=== PATIENT | male | born 1985 | race Caucasian/White ===

== ENCOUNTER 2021-07-28 20:11 | Emergency (ER) | payer MEDICAID ==
[~2021-07-28] VITALS: Ht 172.7 cm; Wt 57.0 kg
[2021-07-29 06:55] VITALS: BP 113/77
== END 2021-07-29 08:30 ==
LOC: ER 20:11
DX: S09.90XA Unspecified injury of head, initial encounter (principal); Z88.2 Allergy status to sulfonamides; W18.30XA Fall on same level, unspecified, initial encounter; Y93.89 Activity, other specified; Y92.89 Other specified places as the place of occurrence of the external cause; Y99.8 Other external cause status
CPT/HCPCS: 99285

== ENCOUNTER 2021-08-04 10:59 | Inpatient (IN) | payer MEDICAID, OTHER ==
[~2021-08-04] VITALS: Ht 170.2 cm; Wt 63.5 kg
[2021-08-04] MEDS ORDERED: TETANUS, DIPHTHERIA, PERTUSSIS VAC/PF 0.5ML (>10YR OLD) IM ONE (11:30)
[2021-08-04] MEDS ORDERED: LIDOCAINE HCL/EPINEPHRINE 1%-EPI 1:100,000 50 ML VIAL INFIL ONE (12:00)
[2021-08-04] MEDS ORDERED: LIDOCAINE HCL/EPINEPHRINE 1%-EPI 1:100,000 10 ML VIAL INFIL NR (12:00)
[2021-08-04 12:03] LABS: BASOPHILS % 0.6 % (0.0-2.0); EOSINOPHILS % 1.6 % (0.0-5.0); HEMATOCRIT. 32.2 % (42.0-52.0); HEMOGLOBIN. 10.4 g/dL (14.0-18.0); LYMPHOCYTES % 14.7 % (20.0-50.0); MEAN CORPUSCULAR HEMOGLOBIN 25.2 pg (28.0-32.0); MEAN CORPUSCULAR VOLUME 77.6 fL (80.0-94.0); MEAN PLATELET VOLUME 6.4 fl (7.4-10.4); MONOCYTES % 7.5 % (2.0-8.0); NEUTROPHILS % 75.6 % (40.0-76.0); PLATELET 205 x1000/uL (130-400); RED BLOOD CELL COUNT 4.14 mill/uL (4.7-6.1); RED CELL DISTRIBUTION WIDTH 20.3 % (11.6-14.6)
[2021-08-04 12:10] LABS: CHLORIDE 106 mEq/L (98-107)
[2021-08-04 12:13] LABS: ETHANOL BLOOD < 10 mg/dL
[2021-08-04 12:17] LABS: CREATINE KINASE 66 IU/L (39-308)
[2021-08-04] MEDS ORDERED: LORAZEPAM 2MG/ML CPJ IV ONE (12:30)
[2021-08-04 15:31] LABS: CLARITY URINE CLEAR (CLEAR); COLOR URINE YELLOW (YELLOW); KETONES URINE NEGATIVE (NEGATIVE); LEUKOCYTE ESTERASE URINE NEGATIVE (NEGATIVE); NITRITE URINE NEGATIVE (NEGATIVE); OCCULT BLOOD URINE NEGATIVE (NEGATIVE); PH URINE 5.5 (4.5-8.0); PROTEIN URINE NEGATIVE (NEGATIVE)
[2021-08-04 16:05] LABS: *AMPHETAMINES SCREEN URINE NEGATIVE (NEGATIVE); *BARBITURATES SCREEN URINE NEGATIVE (NEGATIVE); *BENZODIAZEPINES SCREEN URINE NEGATIVE (NEGATIVE); *COCAINE SCREEN URINE NEGATIVE (NEGATIVE)
[2021-08-04 16:06] LABS: CANNABINOID URINE SCREEN NEGATIVE (NEGATIVE); METHADONE URINE SCREEN NEGATIVE (NEGATIVE); OPIATES URINE SCREEN NEGATIVE (NEGATIVE); PHENCYCLIDINE URINE SCREEN NEGATIVE (NEGATIVE)
[2021-08-04] MEDS ORDERED: ACETAMINOPHEN 325MG TABLET PO PRN (19:15)
[2021-08-04] MEDS ORDERED: LORAZEPAM 2MG/ML CPJ IV PRN (19:15)
[2021-08-04] MEDS ORDERED: ONDANSETRON HCL 4MG/2ML INJ IV PRN (19:15)
[2021-08-04] MEDS ORDERED: CLONIDINE 0.1MG TABLET PO PRN (19:15)
[2021-08-05] MEDS ORDERED: HALOPERIDOL LACTATE 5MG/ML VIAL IM PRN (05:45)
[2021-08-05] MEDS ORDERED: NALOXONE HCL 0.4MG/ML VIAL IV PRN (14:45)
[2021-08-05] MEDS: HALOPERIDOL LACTATE 5MG/ML VIAL IM PRN (15:29)
[2021-08-05] MEDS: LORAZEPAM 2MG/ML CPJ IM PRN ×2 (17:30→23:29)
[2021-08-05 18:32] VITALS: BP 118/81
[2021-08-05 20:00] VITALS: BP 128/74
[2021-08-05] MEDS: HYDROCODONE/ACETAMINOPHEN 5/325MG TABLET PO PRN (22:52)
[2021-08-05] MEDS: RISPERIDONE 1MG TABLET PO SCH (22:52)
[2021-08-06 08:00] VITALS: BP 100/61
[2021-08-06] MEDS: RISPERIDONE 1MG TABLET PO SCH ×2 (08:47→20:16)
[2021-08-06] MEDS: LORAZEPAM 2MG/ML CPJ IM PRN ×3 (08:47→20:15)
[2021-08-06 16:00] VITALS: BP 135/71
[2021-08-06] MEDS: HALOPERIDOL LACTATE 5MG/ML VIAL IM PRN (16:10)
[2021-08-06 20:00] VITALS: BP 115/68
[2021-08-06] MEDS: DIVALPROEX SODIUM 250MG DR TABLET PO SCH (20:15)
[2021-08-07] VITALS: BP 126/78
[2021-08-07] MEDS: LORAZEPAM 2MG/ML CPJ IM PRN ×5 (00:32→20:12)
[2021-08-07] MEDS: HALOPERIDOL LACTATE 5MG/ML VIAL IM PRN ×2 (03:15→16:24)
[2021-08-07 08:00] VITALS: BP 117/74
[2021-08-07] MEDS: DIVALPROEX SODIUM 250MG DR TABLET PO SCH ×2 (09:17→20:11)
[2021-08-07] MEDS: RISPERIDONE 1MG TABLET PO SCH ×2 (09:17→20:11)
[2021-08-07 16:00] VITALS: BP 119/74
[2021-08-07] MEDS: CLONAZEPAM 0.5MG TABLET PO SCH ×2 (16:03→22:21)
[2021-08-07 20:00] VITALS: BP 97/69
[2021-08-07] MEDS: CHLORPROMAZINE HCL 25 MG TABLET PO PRN (20:11)
[2021-08-08] VITALS: BP 130/79
[2021-08-08 04:00] VITALS: BP 108/67
[2021-08-08] MEDS: CHLORPROMAZINE HCL 25 MG TABLET PO PRN ×2 (06:31→13:11)
[2021-08-08] MEDS: CLONAZEPAM 0.5MG TABLET PO SCH ×2 (06:31→14:00)
[2021-08-08] MEDS: DIVALPROEX SODIUM 250MG DR TABLET PO SCH ×2 (08:33→19:53)
[2021-08-08] MEDS: RISPERIDONE 1MG TABLET PO SCH ×2 (08:33→19:52)
[2021-08-08 16:00] VITALS: BP 123/70
[2021-08-08] MEDS ORDERED: CLONAZEPAM 1MG TABLET PO SCH (16:00)
[2021-08-08] MEDS: LORAZEPAM 2MG/ML CPJ IM PRN ×2 (16:22→16:26)
[2021-08-08] MEDS: HYDROCODONE/ACETAMINOPHEN 5/325MG TABLET PO PRN (19:53)
[2021-08-08 20:00] VITALS: BP 114/63
[2021-08-08] MEDS: CLONAZEPAM 1MG TABLET PO SCH (23:05)
[2021-08-09] VITALS: BP 124/84
[2021-08-09] MEDS: HYDROCODONE/ACETAMINOPHEN 5/325MG TABLET PO PRN (01:33)
[2021-08-09] MEDS: LORAZEPAM 2MG/ML CPJ IM PRN (02:17)
[2021-08-09] MEDS: HALOPERIDOL LACTATE 5MG/ML VIAL IM PRN (03:29)
[2021-08-09 04:00] VITALS: BP 119/70
[2021-08-09] MEDS: CLONAZEPAM 1MG TABLET PO SCH ×3 (06:08→21:29)
[2021-08-09 08:00] VITALS: BP 113/63
[2021-08-09] MEDS: CHLORPROMAZINE HCL 25 MG TABLET PO PRN (08:59)
[2021-08-09] MEDS: RISPERIDONE 1MG TABLET PO SCH ×2 (08:59→21:30)
[2021-08-09] MEDS: DIVALPROEX SODIUM 250MG DR TABLET PO SCH ×2 (09:04→21:29)
[2021-08-09 12:00] VITALS: BP 128/75
[2021-08-09 16:00] VITALS: BP 131/75
[2021-08-09 20:00] VITALS: BP 99/63
[2021-08-10] VITALS: BP 101/65
[2021-08-10 04:00] VITALS: BP 118/76
[2021-08-10] MEDS: CLONAZEPAM 1MG TABLET PO SCH ×3 (05:30→17:19)
[2021-08-10 08:00] VITALS: BP 117/74
[2021-08-10 08:09] LABS: BASOPHILS % 0.4 % (0.0-2.0); EOSINOPHILS % 2.9 % (0.0-5.0); HEMATOCRIT. 33.4 % (42.0-52.0); HEMOGLOBIN. 11.3 g/dL (14.0-18.0); LYMPHOCYTES % 23.4 % (20.0-50.0); MEAN CORPUSCULAR HEMOGLOBIN 25.4 pg (28.0-32.0); MEAN CORPUSCULAR VOLUME 75.5 fL (80.0-94.0); MEAN PLATELET VOLUME 6.9 fl (7.4-10.4); MONOCYTES % 8.4 % (2.0-8.0); NEUTROPHILS % 64.9 % (40.0-76.0); PLATELET 227 x1000/uL (130-400); RED BLOOD CELL COUNT 4.43 mill/uL (4.7-6.1); RED CELL DISTRIBUTION WIDTH 19.8 % (11.6-14.6)
[2021-08-10 08:31] LABS: CHLORIDE 105 mEq/L (98-107)
[2021-08-10] MEDS: RISPERIDONE 1MG TABLET PO SCH ×2 (09:56→20:59)
[2021-08-10] MEDS: DIVALPROEX SODIUM 250MG DR TABLET PO SCH ×2 (09:56→20:57)
[2021-08-10] MEDS: HALOPERIDOL LACTATE 5MG/ML VIAL IM PRN (10:44)
[2021-08-10 12:00] VITALS: BP 115/90
[2021-08-10 16:00] VITALS: BP 114/77
[2021-08-10 20:00] VITALS: BP 117/79
[2021-08-11] VITALS: BP 122/82
[2021-08-11 04:00] VITALS: BP 120/68
[2021-08-11 08:00] VITALS: BP 109/65
[2021-08-11] MEDS: CLONAZEPAM 1MG TABLET PO SCH ×2 (09:00→17:39)
[2021-08-11] MEDS: RISPERIDONE 1MG TABLET PO SCH ×2 (09:01→21:05)
[2021-08-11 12:00] VITALS: BP 119/67
[2021-08-11] MEDS: DIVALPROEX SODIUM 250MG DR TABLET PO SCH ×2 (13:50→21:05)
[2021-08-11] MEDS: HALOPERIDOL LACTATE 5MG/ML VIAL IM PRN (14:59)
[2021-08-11 20:00] VITALS: BP 115/79
[2021-08-12] VITALS: BP 112/82
[2021-08-12 04:00] VITALS: BP 120/84
[2021-08-12 08:00] VITALS: BP 109/77
[2021-08-12] MEDS: RISPERIDONE 1MG TABLET PO SCH ×2 (09:53→21:36)
[2021-08-12] MEDS: DIVALPROEX SODIUM 250MG DR TABLET PO SCH ×2 (09:53→21:32)
[2021-08-12 12:00] VITALS: BP 97/62
[2021-08-12 16:00] VITALS: BP 109/82
[2021-08-12] MEDS: HALOPERIDOL LACTATE 5MG/ML VIAL IM PRN (17:14)
[2021-08-12 20:00] VITALS: BP 98/55
[2021-08-13] VITALS: BP 109/78
[2021-08-13 04:00] VITALS: BP 114/74
[2021-08-13] MEDS: RISPERIDONE 1MG TABLET PO SCH ×2 (11:14→21:40)
[2021-08-13] MEDS: DIVALPROEX SODIUM 250MG DR TABLET PO SCH ×2 (11:15→21:42)
[2021-08-13 12:00] VITALS: BP 113/65
[2021-08-13 16:00] VITALS: BP 141/66
[2021-08-13] MEDS: CHLORPROMAZINE HCL 25 MG TABLET PO PRN (16:43)
[2021-08-13 20:00] VITALS: BP 117/72
[2021-08-13] MEDS: HYDROXYZINE 10 MG TABLET PO SCH ×2 (21:39→21:41)
[2021-08-14] VITALS: BP 105/58
[2021-08-14 04:00] VITALS: BP 116/68
[2021-08-14] MEDS: DIVALPROEX SODIUM 250MG DR TABLET PO SCH ×2 (08:52→22:56)
[2021-08-14] MEDS: RISPERIDONE 1MG TABLET PO SCH ×2 (09:00→23:01)
[2021-08-14] MEDS: CHLORPROMAZINE HCL 25 MG TABLET PO PRN (11:19)
[2021-08-14 12:00] VITALS: BP 133/70
[2021-08-14] MEDS: HALOPERIDOL LACTATE 5MG/ML VIAL IM PRN (14:55)
[2021-08-14 20:00] VITALS: BP 102/64
[2021-08-14] MEDS: HYDROXYZINE 10 MG TABLET PO SCH (21:00)
[2021-08-14 22:00] VITALS: BP 110/62
[2021-08-15] VITALS: BP 110/62
[2021-08-15 04:00] VITALS: BP 118/64
[2021-08-15 08:00] VITALS: BP 105/64
[2021-08-15] MEDS: RISPERIDONE 1MG TABLET PO SCH ×2 (08:38→19:57)
[2021-08-15] MEDS: DIVALPROEX SODIUM 250MG DR TABLET PO SCH ×2 (08:38→19:57)
[2021-08-15 12:00] VITALS: BP 115/71
[2021-08-15 16:00] VITALS: BP 111/68
[2021-08-15] MEDS: HYDROXYZINE 10 MG TABLET PO SCH (19:57)
[2021-08-15 20:00] VITALS: BP 115/71
[2021-08-15] MEDS: HALOPERIDOL LACTATE 5MG/ML VIAL IM PRN (22:06)
[2021-08-16] VITALS: BP 103/69
[2021-08-16 04:00] VITALS: BP 98/66
[2021-08-16 08:00] VITALS: BP 97/60
[2021-08-16] MEDS: RISPERIDONE 1MG TABLET PO SCH ×2 (08:53→21:09)
[2021-08-16] MEDS: DIVALPROEX SODIUM 250MG DR TABLET PO SCH ×2 (08:53→21:09)
[2021-08-16 12:00] VITALS: BP 117/76
[2021-08-16 16:00] VITALS: BP 107/69
[2021-08-16 20:00] VITALS: BP 113/74
[2021-08-16] MEDS: HALOPERIDOL LACTATE 5MG/ML VIAL IM PRN (21:09)
[2021-08-17] VITALS: BP 120/59
[2021-08-17] MEDS: HALOPERIDOL LACTATE 5MG/ML VIAL IM PRN ×3 (03:57→22:52)
[2021-08-17 04:00] VITALS: BP 114/68
[2021-08-17 08:00] VITALS: BP 117/70
[2021-08-17] MEDS: DIVALPROEX SODIUM 250MG DR TABLET PO SCH ×2 (09:53→20:24)
[2021-08-17] MEDS: RISPERIDONE 1MG TABLET PO SCH ×2 (09:53→20:24)
[2021-08-17 16:00] VITALS: BP 114/70
[2021-08-17 20:00] VITALS: BP 105/61
[2021-08-17] MEDS: LORAZEPAM 2MG/ML CPJ IM PRN (20:25)
[2021-08-17] MEDS: HYDROXYZINE 10 MG TABLET PO SCH (20:46)
[2021-08-18] VITALS: BP 111/80
[2021-08-18 04:00] VITALS: BP 124/70
[2021-08-18] MEDS: LORAZEPAM 2MG/ML CPJ IM PRN ×2 (04:09→21:41)
[2021-08-18 08:00] VITALS: BP 114/82
[2021-08-18] MEDS: DIVALPROEX SODIUM 250MG DR TABLET PO SCH ×2 (08:33→21:47)
[2021-08-18] MEDS: RISPERIDONE 1MG TABLET PO SCH ×2 (08:34→21:37)
[2021-08-18 16:00] VITALS: BP 119/75
[2021-08-18 20:00] VITALS: BP 102/57
[2021-08-18] MEDS: HYDROXYZINE 10 MG TABLET PO SCH (21:47)
[2021-08-18] MEDS: HALOPERIDOL LACTATE 5MG/ML VIAL IM PRN (23:07)
[2021-08-19 04:00] VITALS: BP 112/63
[2021-08-19] MEDS: LORAZEPAM 2MG/ML CPJ IM PRN ×2 (07:57→17:27)
[2021-08-19 08:00] VITALS: BP 111/68
[2021-08-19] MEDS: RISPERIDONE 1MG TABLET PO SCH ×2 (08:43→23:22)
[2021-08-19] MEDS: DIVALPROEX SODIUM 250MG DR TABLET PO SCH ×2 (08:43→23:22)
[2021-08-19] MEDS: HALOPERIDOL LACTATE 5MG/ML VIAL IM PRN (09:51)
[2021-08-19 12:00] VITALS: BP 119/69
[2021-08-19 20:00] VITALS: BP 109/67
[2021-08-19] MEDS: HYDROXYZINE 10 MG TABLET PO SCH (23:22)
[2021-08-20] VITALS: BP 104/67
[2021-08-20] MEDS: LORAZEPAM 2MG/ML CPJ IM PRN ×3 (03:46→20:33)
[2021-08-20 04:00] VITALS: BP 159/82
[2021-08-20 08:00] VITALS: BP 112/64
[2021-08-20] MEDS: RISPERIDONE 1MG TABLET PO SCH ×3 (09:00→20:32)
[2021-08-20] MEDS: DIVALPROEX SODIUM 250MG DR TABLET PO SCH ×2 (09:57→20:32)
[2021-08-20 11:38] LABS: BASOPHILS % 0.5 % (0.0-2.0); EOSINOPHILS % 2.1 % (0.0-5.0); HEMATOCRIT. 35.2 % (42.0-52.0); HEMOGLOBIN. 11.3 g/dL (14.0-18.0); LYMPHOCYTES % 23.4 % (20.0-50.0); MEAN CORPUSCULAR HEMOGLOBIN 24.7 pg (28.0-32.0); MONOCYTES % 10.6 % (2.0-8.0); NEUTROPHILS % 63.4 % (40.0-76.0); RED BLOOD CELL COUNT 4.57 mill/uL (4.7-6.1); RED CELL DISTRIBUTION WIDTH 18.5 % (11.6-14.6)
[2021-08-20 12:00] VITALS: BP 104/68
[2021-08-20 12:07] LABS: CHLORIDE 107 mEq/L (98-107)
[2021-08-20 16:00] VITALS: BP 111/76
[2021-08-20 20:00] VITALS: BP 105/60
[2021-08-20] MEDS: HYDROXYZINE 10 MG TABLET PO SCH (20:32)
[2021-08-20] MEDS: HALOPERIDOL LACTATE 5MG/ML VIAL IM PRN (23:57)
[2021-08-21] VITALS: BP 105/70
[2021-08-21 04:00] VITALS: BP 95/61
[2021-08-21] MEDS: LORAZEPAM 2MG/ML CPJ IM PRN ×3 (04:30→20:02)
[2021-08-21] MEDS: HALOPERIDOL LACTATE 5MG/ML VIAL IM PRN ×2 (06:44→17:42)
[2021-08-21 08:00] VITALS: BP 109/68
[2021-08-21] MEDS: DIVALPROEX SODIUM 250MG DR TABLET PO SCH ×2 (09:04→20:02)
[2021-08-21] MEDS: RISPERIDONE 1MG TABLET PO SCH ×2 (09:04→20:02)
[2021-08-21] MEDS ORDERED: POTASSIUM CHLORIDE 20MEQ TABLET SR PO SCH (10:00)
[2021-08-21 16:00] VITALS: BP 93/53
[2021-08-21] MEDS: HYDROXYZINE 10 MG TABLET PO SCH (20:02)
[2021-08-21] MEDS: CHLORPROMAZINE HCL 25 MG TABLET PO PRN (23:11)
[2021-08-22] VITALS: BP 124/67
[2021-08-22] MEDS: HALOPERIDOL LACTATE 5MG/ML VIAL IM PRN ×3 (00:14→21:57)
[2021-08-22] MEDS: LORAZEPAM 2MG/ML CPJ IM PRN (02:28)
[2021-08-22 04:00] VITALS: BP 104/67
[2021-08-22] MEDS: CHLORPROMAZINE HCL 25 MG TABLET PO PRN ×3 (06:25→21:57)
[2021-08-22 08:00] VITALS: BP 110/79
[2021-08-22] MEDS: RISPERIDONE 1MG TABLET PO SCH ×2 (09:00→21:57)
[2021-08-22 12:00] VITALS: BP 114/80
[2021-08-22 16:00] VITALS: BP 95/57
[2021-08-22] MEDS: DIVALPROEX SODIUM 250MG DR TABLET PO SCH ×2 (17:40→21:57)
[2021-08-22 20:00] VITALS: BP 126/57
[2021-08-22] MEDS: HYDROXYZINE 10 MG TABLET PO SCH (21:57)
[2021-08-23] VITALS: BP 111/76
[2021-08-23] MEDS: HALOPERIDOL LACTATE 5MG/ML VIAL IM PRN (00:45)
[2021-08-23 04:00] VITALS: BP 113/69
[2021-08-23 08:00] VITALS: BP 110/62
[2021-08-23] MEDS: RISPERIDONE 1MG TABLET PO SCH ×2 (09:52→21:48)
[2021-08-23] MEDS: DIVALPROEX SODIUM 250MG DR TABLET PO SCH ×2 (09:52→21:48)
[2021-08-23 12:00] VITALS: BP 97/54
[2021-08-23 16:00] VITALS: BP 93/53
[2021-08-23 20:00] VITALS: BP 109/74
[2021-08-24] VITALS: BP 94/53
[2021-08-24 04:00] VITALS: BP 101/55
[2021-08-24 08:00] VITALS: BP 94/62
[2021-08-24] MEDS: DIVALPROEX SODIUM 250MG DR TABLET PO SCH ×2 (09:42→21:39)
[2021-08-24] MEDS: RISPERIDONE 1MG TABLET PO SCH ×2 (09:42→21:39)
[2021-08-24 16:00] VITALS: BP 96/56
[2021-08-24 20:39] VITALS: BP 99/53
[2021-08-24] MEDS ORDERED: HYDROXYZINE 25MG TABLET PO SCH (21:00)
[2021-08-25] VITALS: BP 106/56
[2021-08-25] MEDS: HALOPERIDOL LACTATE 5MG/ML VIAL IM PRN ×3 (00:32→18:43)
[2021-08-25 04:00] VITALS: BP 112/56
[2021-08-25 08:00] VITALS: BP 116/73
[2021-08-25] MEDS: DIVALPROEX SODIUM 250MG DR TABLET PO SCH (10:13)
[2021-08-25] MEDS: RISPERIDONE 1MG TABLET PO SCH (10:13)
[2021-08-25 12:00] VITALS: BP 108/65
[2021-08-25 16:00] VITALS: BP 121/63
[2021-08-25 20:00] VITALS: BP 124/79
[2021-08-26] VITALS: BP 103/63
[2021-08-26 08:00] VITALS: BP 104/74
[2021-08-26] MEDS: RISPERIDONE 1MG TABLET PO SCH (08:38)
[2021-08-26] MEDS: DIVALPROEX SODIUM 250MG DR TABLET PO SCH (08:38)
[2021-08-26] MEDS: CLONAZEPAM 0.5MG TABLET PO SCH ×2 (08:38→13:17)
[2021-08-26 12:00] VITALS: BP 127/74
[2021-08-26 16:00] VITALS: BP 130/80
[2021-08-26 16:40] VITALS: BP 127/74
== END 2021-08-26 17:25 | disposition hospice, inpatient (51) | DRG 52 ==
LOC: ER 10:59 → MICUSO 18:12 → EDBEDREQTM 18:16 → EDBEDREQ 18:16 → ER 21:36 → MICUSO 21:36 → CANRESERV 22:53 → ENRESERV 22:53 → 6EST 08-05 13:51
PROVIDERS: ADMIT Hospitalist; ATTEND Hospitalist
PROC: 0HQ0XZZ Repair Scalp Skin, External Approach (ICD-10-PCS; principal; 2021-08-04)
DX: G93.40 Encephalopathy, unspecified (principal); S09.90XA Unspecified injury of head, initial encounter; F29 Unspecified psychosis not due to a substance or known physiological condition; W22.03XA Walked into furniture, initial encounter; Z20.822 Contact with and (suspected) exposure to COVID-19; S01.01XA Laceration without foreign body of scalp, initial encounter; Z98.2 Presence of cerebrospinal fluid drainage device; Z82.49 Family history of ischemic heart disease and other diseases of the circulatory system; Z88.2 Allergy status to sulfonamides; Z86.19 Personal history of other infectious and parasitic diseases; Y93.89 Activity, other specified; Y92.128 Other place in nursing home as the place of occurrence of the external cause; Y99.8 Other external cause status; Z78.1 Physical restraint status; Z85.841 Personal history of malignant neoplasm of brain; Z86.69 Personal history of other diseases of the nervous system and sense organs
CPT/HCPCS: 36415; 71045; 80048; 80053; 80076; 80165; 80305; 80307; 80320; 80329; 81003; 82140; 82550; 83605; 85025; 87426; 99285; J1630; J2060; J3490; Q0161; G0480